=== PATIENT | male | born 1970 | race Caucasian/White ===

== ENCOUNTER 2020-08-29 09:42 | Emergency (ER) | payer BC, SELFPAY ==
--- NOTE | 2020-08-29 | ECG_ITS ---
Test Reason : BACK PAIN Blood Pressure : / mmHG Vent. Rate : 073 BPM Atrial Rate : 073 BPM P-R Int : 136 ms QRS Dur : 116 ms QT Int : 376 ms P-R-T Axes : 073 071 069 degrees QTc Int : 414 ms Normal sinus rhythm Normal ECG No previous ECGs available Referred By: Generic ED Physician Electronically Signed By:ODALYS FLETCHER MD
--- NOTE | ~2020-08-29 | CT_ITS ---
EXAMINATION: HEAD CT AND CERVICAL SPINE CT WITHOUT CONTRAST CLINICAL INFORMATION: Fall COMPARISON: Previous cervical spine x-ray February 2015 TECHNIQUE: Axial images through the head and cervical spine without contrast. Sagittal and coronal reconstructions on the technologist's workstation. Patient dose 752+4 4 3 mg/cm. This CT examination was performed using dose optimization techniques as appropriate, variously including the following: *Automated exposure control *Adjustment of mA and/or kV according to patient size (this includes techniques or standardized protocols for targeted exams where dose is matched to indication/reason for exam; i.e. extremities or head) *Use of iterative reconstruction technique FINDINGS: Head CT: There is no evidence of an extra-axial collection. There is no evidence of intra-axial or extra-axial hemorrhage. The ventricles and extra-axial CSF spaces are appropriate. Rowland-white matter differentiation is normal. No mass, mass effect or infarct is seen. No skull fracture is seen. Paranasal sinuses, mastoid air cells and middle ears are clear. Cervical spine: There is curvature of the lower cervical spine to the left and lower thoracic spine to the right. Bone alignment is otherwise normal. No fracture or dislocation is seen. There is an incomplete arch and C1. Disc spaces are normal. Prevertebral soft tissues are normal. Lung apices are clear. CT/CT cervical spine wo con IMPRESSION: Head CT: Unremarkable exam. Cervical spine: No fracture or dislocation seen. Mild curvature of the lower cervical spine to the left and upper thoracic spine to the right.
--- NOTE | ~2020-08-29 | CT_ITS ---
EXAMINATION: HEAD CT AND CERVICAL SPINE CT WITHOUT CONTRAST CLINICAL INFORMATION: Fall COMPARISON: Previous cervical spine x-ray February 2015 TECHNIQUE: Axial images through the head and cervical spine without contrast. Sagittal and coronal reconstructions on the technologist's workstation. Patient dose 752+4 4 3 mg/cm. This CT examination was performed using dose optimization techniques as appropriate, variously including the following: *Automated exposure control *Adjustment of mA and/or kV according to patient size (this includes techniques or standardized protocols for targeted exams where dose is matched to indication/reason for exam; i.e. extremities or head) *Use of iterative reconstruction technique FINDINGS: Head CT: There is no evidence of an extra-axial collection. There is no evidence of intra-axial or extra-axial hemorrhage. The ventricles and extra-axial CSF spaces are appropriate. Rowland-white matter differentiation is normal. No mass, mass effect or infarct is seen. No skull fracture is seen. Paranasal sinuses, mastoid air cells and middle ears are clear. Cervical spine: There is curvature of the lower cervical spine to the left and lower thoracic spine to the right. Bone alignment is otherwise normal. No fracture or dislocation is seen. There is an incomplete arch and C1. Disc spaces are normal. Prevertebral soft tissues are normal. Lung apices are clear. CT/CT head/brain wo con IMPRESSION: Head CT: Unremarkable exam. Cervical spine: No fracture or dislocation seen. Mild curvature of the lower cervical spine to the left and upper thoracic spine to the right.
[2020-08-29 09:47] VITALS: BP 185/103; PULSE 85; RESP 16; TEMP 36.9; O2SAT 97; BMI 27.2
--- NOTE | 2020-08-29 13:37 | ED_ITS ---
HPI - Syncope General Chief Complaint: Syncope Stated Complaint: dizziness, fall Time Seen by Provider: 08/29/20 13:34 History of Present Illness HPI narrative: This is a 49 years old male presented to the emergency the department after a near syncopal episode at work. He was bending down and then turn a fall backward. He denies any LOC he is denies any chest pain, shortness of breath ,no fever either ,fully ambulatory in the emergency department Related Data Allergies Allergy/AdvReac Type Severity Reaction Status Date / Time codeine [CODEINE] Allergy Mild HIVES Unverified 02/14/20 14:51 diphenhydramine Allergy Mild HIES Unverified 02/14/20 14:51 [From BENADRYL] Review of Systems Review of Systems: Yes all other systems are reviewed and are negative Cardiovascular: Cardiovascular: Reports no additional cardiovascular complaint s, Denies chest pain, Denies chest pain at rest, Denies chest pain with activity, Denies dyspnea and Denies dyspnea on exertion Respiratory: Respiratory: Denies dyspnea and Denies dyspnea on exertion [facility] Social History Social History Smoking Status: Current every day smoker Use of substances other than those prescribed or required for medical reasons: No Advance Directives: No Advance Directives Information Provided: No Physical Exam Vital Signs: Vital Signs: Last Vital Signs Temp 97.7 F 08/29/20 15:53 Pulse 64 08/29/20 15:53 Resp 14 08/29/20 15:53 BP 159/97 H 08/29/20 15:53 Pulse Ox 100 08/29/20 15:53 Body Mass Index 27.2 Const: General: cooperative Orientation/consciousness: oriented to person, oriented to place, oriented to time and patient oriented x3 HENMT: Head: Yes normal to inspection and Yes No palpable skull fracture present Eyes: General: appearance normal, both eyes and all related structures Neck: Neck: Yes normal visual inspection and Yes full ROM Chest: Chest palpation & inspection: normal inspection of the chest Resp: Auscultation: clear to auscultation bilaterally Cardio: Jugular venous distension: no JVD Rate: regular rate GI: Inspection: Yes normal to inspection Percussion: Yes normal to percussion Auscultation: normal bowel sounds Skin: General skin exam: no rashes or lesions noted Neuro: General: oriented to person, oriented to place, oriented to time and patient oriented x3 Extrem: General: Yes normal to inspection and Yes capillary refill normal Course Reevaluation(s) Time: 15:57 Reevaluation #2: Patient was observed in the emergency department several hours he remained asymptomatic his workup was negative a head CT was negative EKG was within normal limites troponin was negative a I think it is reasonable to discharge the patient home with follow-up with the primary care physician. Shared decision making with the patient these comfortable with the plan he will return is the worse MDM - Syncope Lab Data Result diagrams: 08/29/20 14:55 08/29/20 14:55 Labs: Lab Results 08/29/20 08/29/20 08/29/20 Range/Units 14:55 14:55 14:55 WBC 9.2 (4.8-10.8) X10*3/uL RBC 4.87 (4.60-5.80) X10*6/uL Hgb 15.3 (14.0-18.0) g/dl Hct 45.6 (42-52) % MCV 93.6 (80-98) fL MCH 31.4 (27.0-33.0) pg MCHC 33.6 (31.0-36.0) g/dl RDW 11.9 (11.0-16.0) % Plt Count 249 (160-400) X10*3/uL MPV 9.7 (9.4-12.4) fL Immature Gran % (Auto) 0.3 (0.0-0.4) % Neut % (Auto) 69.8 (45-73) % Lymph % (Auto) 20.0 (20-40) % Loving % (Auto) 8.1 (2-11) % Eos % (Auto) 1.4 (0-4) % Baso % (Auto) 0.4 (0-2) % Lymph # (Auto) 1.8 (1.2-4.9) X10*3/uL Loving # (Auto) 0.7 (0.1-1.2) X10*3/uL Eos # (Auto) 0.1 (0.0-0.4) X10*3/uL Baso # (Auto) 0.0 (0.0-0.2) X10*3/uL Abs Immat Gran (auto) 0.03 (0.00-0.03) X10*3/uL Absolute Neuts (auto) 6.4 (2.0-8.3) X10*3/uL Absolute Nucleated RBC 0.000 (0.0-0.012) X10*3/uL Nucleated RBC % (auto) 0.0 (0.0-0.2) /100WBC PT 12.9 (10.8-13.0) SEC INR 1.1 (0.9-1.1) Sodium 142 (135-145) mmol/L Potassium 4.6 (3.3-5.1) mmol/L Chloride 103 (96-108) mmol/L Carbon Dioxide 32 H (22-29) mmol/L Anion Gap 12 (12-20) BUN 12 (9-16) mg/dL Creatinine 0.90 (0.5-1.4) mg/dL Estim Creat Clear Calc 103.6 Estimated GFR > 60 Random Glucose 90 (60-115) mg/dL Calcium 9.5 (8.4-10.2) mg/dL Total Bilirubin 0.8 (0.0-1.0) mg/dL AST 15 (5-37) U/L ALT 18 (0-40) U/L Alkaline Phosphatase 71 (39-117) U/L Troponin I High Sens (<3.5-35.0) ng/L Total Protein 8.0 (6.5-8.0) g/dL Albumin 4.7 (3.5-5.0) g/dL 08/29/20 Range/Units 14:55 WBC (4.8-10.8) X10*3/uL RBC (4.60-5.80) X10*6/uL Hgb (14.0-18.0) g/dl Hct (42-52) % MCV (80-98) fL MCH (27.0-33.0) pg MCHC (31.0-36.0) g/dl RDW (11.0-16.0) % Plt Count (160-400) X10*3/uL MPV (9.4-12.4) fL Immature Gran % (Auto) (0.0-0.4) % Neut % (Auto) (45-73) % Lymph % (Auto) (20-40) % Loving % (Auto) (2-11) % Eos % (Auto) (0-4) % Baso % (Auto) (0-2) % Lymph # (Auto) (1.2-4.9) X10*3/uL Loving # (Auto) (0.1-1.2) X10*3/uL Eos # (Auto) (0.0-0.4) X10*3/uL Baso # (Auto) (0.0-0.2) X10*3/uL Abs Immat Gran (auto) (0.00-0.03) X10*3/uL Absolute Neuts (auto) (2.0-8.3) X10*3/uL Absolute Nucleated RBC (0.0-0.012) X10*3/uL Nucleated RBC % (auto) (0.0-0.2) /100WBC PT (10.8-13.0) SEC INR (0.9-1.1) Sodium (135-145) mmol/L Potassium (3.3-5.1) mmol/L Chloride (96-108) mmol/L Carbon Dioxide (22-29) mmol/L Anion Gap (12-20) BUN (9-16) mg/dL Creatinine (0.5-1.4) mg/dL Estim Creat Clear Calc Estimated GFR Random Glucose (60-115) mg/dL Calcium (8.4-10.2) mg/dL Total Bilirubin (0.0-1.0) mg/dL AST (5-37) U/L ALT (0-40) U/L Alkaline Phosphatase (39-117) U/L Troponin I High Sens < 3.5 (<3.5-35.0) ng/L Total Protein (6.5-8.0) g/dL Albumin (3.5-5.0) g/dL ECG Data Attestation: I personally reviewed and interpreted this ECG as follows: Pacemaker model: Normal sinus rhythm rate 73 no ischemic changes normal intervals
[2020-08-29 14:48] VITALS: BP 157/92; PULSE 62; RESP 16; TEMP 36.9; O2SAT 98
[2020-08-29 15:00] LABS: MANUAL DIFF FLAG NO
[2020-08-29 15:04] LABS: Basophils Percent Auto 0.4 % (0-2); Eosinophils Absolute Auto 0.1 X10*3/uL (0.0-0.4); Eosinophils Percent Auto 1.4 % (0-4); Hematocrit 45.6 % (42-52); Hemoglobin 15.3 g/dl (14.0-18.0); Imm Gran Abs Auto 0.03 X10*3/uL (0.00-0.03); Imm Gran Pct Auto 0.3 % (0.0-0.4); Lymphocytes Absolute Auto 1.8 X10*3/uL (1.2-4.9); Mean Corpuscular HGB Conc 33.6 g/dl (31.0-36.0); Mean Corpuscular Hemoglobin 31.4 pg (27.0-33.0); Mean Corpuscular Volume 93.6 fL (80-98); Mean Platelet Volume 9.7 fL (9.4-12.4); Monocytes Absolute Auto 0.7 X10*3/uL (0.1-1.2); Monocytes Percent Auto 8.1 % (2-11); Neutrophils Absolute Auto 6.4 X10*3/uL (2.0-8.3); Neutrophils Percent Auto 69.8 % (45-73); Platelet Count 249 X10*3/uL (160-400); Red Blood Count 4.87 X10*6/uL (4.60-5.80); Red Cell Distribution Width 11.9 % (11.0-16.0); White Blood Count 9.2 X10*3/uL (4.8-10.8)
[2020-08-29 15:11] LABS: INTERNATIONAL NORM RATIO 1.1 (0.9-1.1); Prothrombin Time 12.9 SEC (10.8-13.0)
[2020-08-29 15:30] LABS: Alanine Aminotransferase 18 U/L (0-40); Albumin Level 4.7 g/dL (3.5-5.0); Alkaline Phosphatase 71 U/L (39-117); Anion Gap 12 (12-20); Aspartate Amino Transferase 15 U/L (5-37); Bilirubin Total 0.8 mg/dL (0.0-1.0); Blood Urea Nitrogen 12 mg/dL (9-16); Calcium 9.5 mg/dL (8.4-10.2); Carbon Dioxide 32 mmol/L (22-29); Chloride 103 mmol/L (96-108); Creatinine Clr Calc Pharmacy 103.6; Estimated Glomerular Filt Rate > 60; Glucose Random 90 mg/dL (60-115); Potassium 4.6 mmol/L (3.3-5.1); Sodium 142 mmol/L (135-145)
[2020-08-29 15:36] LABS: Troponin-I High Sensitivity < 3.5 ng/L (<3.5-35.0)
[2020-08-29 15:53] VITALS: BP 159/97; PULSE 64; RESP 14; TEMP 36.5; O2SAT 100
== END 2020-08-29 16:28 | disposition home or self-care (01) ==
PROVIDERS: Emergency Provider Emergency Medicine
DX: R55 Syncope and collapse (principal); M54.2 Cervicalgia; G44.309 Post-traumatic headache, unspecified, not intractable; F17.200 Nicotine dependence, unspecified, uncomplicated; Z71.6 Tobacco abuse counseling
CPT/HCPCS: 36415; 70450; 72125; 80053; 84484; 85025; 85610; 93005; 99284

== ENCOUNTER 2020-12-11 07:25 | Emergency (ER) | payer BC, SELFPAY ==
[2020-12-11 07:31] VITALS: BP 201/126; PULSE 73; RESP 16; TEMP 36.9; O2SAT 98; BMI 27.4
--- NOTE | 2020-12-11 07:49 | ED_ITS ---
HPI - Chest Pain General Chief Complaint: Chest Pain Stated Complaint: chest pain Time Seen by Provider: 12/11/20 07:31 Source: patient Mode of arrival: ambulatory Limitations: no limitations History of Present Illness HPI narrative: Patient comes emergency room complaining of chest pressure that started this morning around 05:30. Patient states he had some pulled muscle sensation in his chest after playing golf yesterday. Patient went to sleep, but he noticed that the pain/pressure restarted. Patient states he has some discomfort in his left chest. Denies nausea vomiting or diaphoresis, no dizziness, denies cardiac history. Patient states that at this time he has very mild discomfort but he is extremely anxious. Patient states that he ran out of his blood pressure medication approximately 1 week ago. MD complaint: chest discomfort Related Data Allergies Allergy/AdvReac Type Severity Reaction Status Date / Time codeine [CODEINE] Allergy Mild HIVES Unverified 02/14/20 14:51 diphenhydramine Allergy Mild HIES Unverified 02/14/20 14:51 [From BENADRYL] Review of Systems Review of Systems: Constitutional : No Weight loss, No Fever, No Chills, No Night Sweats, No Fatigue, No Malaise ENT/Mouth : No Hearing loss, No Ear Pain, No Nasal Congestion, No Sinus Pain, No Hoarseness, No sore throat, No Rhinorrhea, No Swallowing Difficulty Eyes: No Eye Pain, No Swelling, No Redness, No Foreign Body, No Discharge, No Vision Changes Cardiovascular : Complaining of chest pressure/burning sensation, No SOB, No Dyspnea on Exertion, No Orthopnea, No Edema, No Palpitations Respiratory : No Cough, No Sputum, No Wheezing, No Smoke Exposure, No Dyspnea Gastrointestinal : No Nausea, No Vomiting, No Diarrhea, No Constipation, No abdominal Pain, No Hematochezia, No Melena Genitourinary : no irregular bleeding, No Dysuria, No Urinary Frequency, No Hematuria, No Urinary Incontinence, No Urgency, No Flank Pain, No Urinary Flow Changes, No Hesitancy Musculoskeletal : No joint pain, No Myalgias, No Joint Swelling Skin : No Skin Lesions, No rash Neuro : No Weakness, No Numbness, No Paresthesias, No Loss of Consciousness, No Dizziness, No Headache Psych : complaining of feeling very anxious, No Depression, No SI/HI/AH/VH, No Social Issues, Heme/Lymph: No Bruising, No Bleeding,No Lymphadenopathy Endocrine : No Polyuria, No Polydipsia, No Temperature Intolerance [facility] Past Medical History Medical History Anxiety HTN (hypertension) Social History Social History Advance Directives: Yes Advance Directives Information Provided: Yes Advance Directives on File: No Physical Exam Vital Signs: Vital Signs: Last Vital Signs Temp 98.0 F 12/11/20 10:56 Pulse 55 12/11/20 10:56 Resp 16 12/11/20 10:56 BP 135/89 12/11/20 10:56 Pulse Ox 99 12/11/20 10:56 Body Mass Index 27.4 Appearance: Alert. Oriented X3. No acute distress. Anxious, traveling Eyes: Pupils equal, round and reactive to light. ENT: Pharynx normal. Neck: Normal inspection. Neck supple. No lymph nodes noted. No crepitus CVS: Normal heart rate and rhythm. Pulses normal. Normal S1 and S2, no reproducible chest pain Respiratory: No respiratory distress. Breath sounds normal. No Wheezing. No rales Abdomen: Soft and nontender. No rigidity. No distention. good BS x4 Skin: Skin warm and dry. Normal skin color. Normal skin turgor. Extremities: No lower extremity edema. No lower extremity edema. No Lacerations. No Rash Neuro: Oriented X 3. No motor deficit. No sensory deficit. Moving all extermities. No slurred speech. Course Course Course Narrative: Patient's EKG within normal limits, troponin x2 negative. At this time of discharge, patient is nearly asymptomatic, states he is no longer anxious. Blood pressure 135 systolic. MDM - Chest Pain Lab Data Result diagrams: 12/11/20 07:53 12/11/20 07:53 Labs: Lab Results 12/11/20 12/11/20 12/11/20 Range/Units 07:53 07:53 07:53 WBC 8.6 (4.8-10.8) X10*3/uL RBC 4.62 (4.60-5.80) X10*6/uL Hgb 14.3 (14.0-18.0) g/dl Hct 43.0 (42-52) % MCV 93.1 (80-98) fL MCH 31.0 (27.0-33.0) pg MCHC 33.3 (31.0-36.0) g/dl RDW 11.5 (11.0-16.0) % Plt Count 230 (160-400) X10*3/uL MPV 9.7 (9.4-12.4) fL Immature Gran % (Auto) 0.2 (0.0-0.4) % Neut % (Auto) 72.8 (45-73) % Lymph % (Auto) 17.3 L (20-40) % Granite % (Auto) 6.7 (2-11) % Eos % (Auto) 2.4 (0-4) % Baso % (Auto) 0.6 (0-2) % Lymph # (Auto) 1.5 (1.2-4.9) X10*3/uL Granite # (Auto) 0.6 (0.1-1.2) X10*3/uL Eos # (Auto) 0.2 (0.0-0.4) X10*3/uL Baso # (Auto) 0.1 (0.0-0.2) X10*3/uL Abs Immat Gran (auto) 0.02 (0.00-0.03) X10*3/uL Absolute Neuts (auto) 6.3 (2.0-8.3) X10*3/uL Absolute Nucleated RBC 0.000 (0.0-0.012) X10*3/uL Nucleated RBC % (auto) 0.0 (0.0-0.2) /100WBC Sodium 141 (135-145) mmol/L Potassium 4.5 (3.3-5.1) mmol/L Chloride 104 (96-108) mmol/L Carbon Dioxide 30 H (22-29) mmol/L Anion Gap 12 (12-20) BUN 13 (9-16) mg/dL Creatinine 1.03 (0.5-1.4) mg/dL Estim Creat Clear Calc 86.7 Estimated GFR > 60 Random Glucose 131 H D (60-115) mg/dL Calcium 9.5 (8.4-10.2) mg/dL Total Bilirubin 0.3 (0.0-1.0) mg/dL Direct Bilirubin < 0.2 (0.0-0.5) mg/dL AST 17 (5-37) U/L ALT 22 (0-40) U/L Alkaline Phosphatase 78 (39-117) U/L Troponin I High Sens (<3.5-35.0) ng/L Total Protein 7.7 (6.5-8.0) g/dL Albumin 4.5 (3.5-5.0) g/dL 12/11/20 12/11/20 Range/Units 07:53 11:01 WBC (4.8-10.8) X10*3/uL RBC (4.60-5.80) X10*6/uL Hgb (14.0-18.0) g/dl Hct (42-52) % MCV (80-98) fL MCH (27.0-33.0) pg MCHC (31.0-36.0) g/dl RDW (11.0-16.0) % Plt Count (160-400) X10*3/uL MPV (9.4-12.4) fL Immature Gran % (Auto) (0.0-0.4) % Neut % (Auto) (45-73) % Lymph % (Auto) (20-40) % Granite % (Auto) (2-11) % Eos % (Auto) (0-4) % Baso % (Auto) (0-2) % Lymph # (Auto) (1.2-4.9) X10*3/uL Granite # (Auto) (0.1-1.2) X10*3/uL Eos # (Auto) (0.0-0.4) X10*3/uL Baso # (Auto) (0.0-0.2) X10*3/uL Abs Immat Gran (auto) (0.00-0.03) X10*3/uL Absolute Neuts (auto) (2.0-8.3) X10*3/uL Absolute Nucleated RBC (0.0-0.012) X10*3/uL Nucleated RBC % (auto) (0.0-0.2) /100WBC Sodium (135-145) mmol/L Potassium (3.3-5.1) mmol/L Chloride (96-108) mmol/L Carbon Dioxide (22-29) mmol/L Anion Gap (12-20) BUN (9-16) mg/dL Creatinine (0.5-1.4) mg/dL Estim Creat Clear Calc Estimated GFR Random Glucose (60-115) mg/dL Calcium (8.4-10.2) mg/dL Total Bilirubin (0.0-1.0) mg/dL Direct Bilirubin (0.0-0.5) mg/dL AST (5-37) U/L ALT (0-40) U/L Alkaline Phosphatase (39-117) U/L Troponin I High Sens < 3.5 < 3.5 (<3.5-35.0) ng/L Total Protein (6.5-8.0) g/dL Albumin (3.5-5.0) g/dL ECG Data ECG #1: Attestation: I personally reviewed and interpreted this ECG as follows: (Normal sinus rhythm, heart rate 68, no ST segment depression or elevation, no T-wave inversion, interference due to shaking) Scores Heart Score History: -0- slightly suspicious ECG: -0- normal Age: -1- >45 - <65 Risk factory: -1- 1 or 2 risk factors Troponin: -0- < or = normal limit Score: 2 Risk: 1.7% Discharge Plan Discharge Clinical Impression: Atypical chest pain Patient Disposition: Home, Self-Care Instructions: Chest Pain (ED) Additional Instructions: Please follow-up with your primary care physician tomorrow. If you have any worsening or new symptoms, please return to the emergency room or call 911 Stand Alone Forms: Work/School Release
[2020-12-11 07:59] LABS: MANUAL DIFF FLAG NO
[2020-12-11 08:00] VITALS: BP 152/89; PULSE 58; RESP 20; O2SAT 98
[2020-12-11 08:00] LABS: Basophils Absolute Auto 0.1 X10*3/uL (0.0-0.2); Basophils Percent Auto 0.6 % (0-2); Eosinophils Absolute Auto 0.2 X10*3/uL (0.0-0.4); Eosinophils Percent Auto 2.4 % (0-4); Hemoglobin 14.3 g/dl (14.0-18.0); Imm Gran Abs Auto 0.02 X10*3/uL (0.00-0.03); Imm Gran Pct Auto 0.2 % (0.0-0.4); Lymphocytes Absolute Auto 1.5 X10*3/uL (1.2-4.9); Lymphocytes Percent Auto 17.3 % (20-40); Mean Corpuscular HGB Conc 33.3 g/dl (31.0-36.0); Mean Corpuscular Volume 93.1 fL (80-98); Mean Platelet Volume 9.7 fL (9.4-12.4); Monocytes Absolute Auto 0.6 X10*3/uL (0.1-1.2); Monocytes Percent Auto 6.7 % (2-11); Neutrophils Absolute Auto 6.3 X10*3/uL (2.0-8.3); Neutrophils Percent Auto 72.8 % (45-73); Platelet Count 230 X10*3/uL (160-400); Red Blood Count 4.62 X10*6/uL (4.60-5.80); Red Cell Distribution Width 11.5 % (11.0-16.0); White Blood Count 8.6 X10*3/uL (4.8-10.8)
[2020-12-11] MEDS: Aspirin Enteric Coated 325 MG TABLET.DR PO (08:11)
[2020-12-11] MEDS: LORazepam 0.5 MG TABLET PO (08:11)
[2020-12-11 08:21] LABS: Anion Gap 12 (12-20); Blood Urea Nitrogen 13 mg/dL (9-16); Calcium 9.5 mg/dL (8.4-10.2); Carbon Dioxide 30 mmol/L (22-29); Chloride 104 mmol/L (96-108); Creatinine Clr Calc Pharmacy 86.7; Estimated Glomerular Filt Rate > 60; Glucose Random 131 mg/dL (60-115); Potassium 4.5 mmol/L (3.3-5.1); Sodium 141 mmol/L (135-145)
[2020-12-11 08:22] LABS: Alanine Aminotransferase 22 U/L (0-40); Albumin Level 4.5 g/dL (3.5-5.0); Alkaline Phosphatase 78 U/L (39-117); Aspartate Amino Transferase 17 U/L (5-37); Bilirubin Direct < 0.2 mg/dL (0.0-0.5); Bilirubin Total 0.3 mg/dL (0.0-1.0); Total Protein 7.7 g/dL (6.5-8.0)
[2020-12-11 08:26] LABS: Troponin-I High Sensitivity < 3.5 ng/L (<3.5-35.0)
[2020-12-11 10:56] VITALS: BP 135/89; PULSE 55; RESP 16; TEMP 36.7; O2SAT 99
[2020-12-11 11:51] LABS: Troponin-I High Sensitivity < 3.5 ng/L (<3.5-35.0)
--- NOTE | 2020-12-11 16:16 | ECG_ITS ---
Test Reason : CHEST PRESSURE Blood Pressure : / mmHG Vent. Rate : 068 BPM Atrial Rate : 068 BPM P-R Int : 158 ms QRS Dur : 106 ms QT Int : 382 ms P-R-T Axes : 021 067 060 degrees QTc Int : 406 ms Normal sinus rhythm Normal ECG When compared with ECG of 29-AUG-2020 10:14, No significant change was found Referred By: Kim Chicas Electronically Signed By:Oscar Jimenez
== END 2020-12-11 12:25 | disposition home or self-care (01) ==
PROVIDERS: Emergency Provider Emergency Medicine; PCP Internal Medicine
DX: R07.89 Other chest pain (principal); I10 Essential (primary) hypertension
CPT/HCPCS: 36415; 80048; 80076; 84484; 85025; 93005; 99283; 99285

== ENCOUNTER 2022-02-08 06:13 | Inpatient (IN) | payer BC, SELFPAY ==
[2022-02-08] VITALS (8 sets, daily range): BP systolic 119–144; BP diastolic 80–104; PULSE 70–128; RESP 16–18; TEMP 36.6–37.6; O2SAT 96–99; BMI 28.4
--- NOTE | ~2022-02-08 | US_ITS ---
EXAMINATION: US VENOUS ULTRASOUND WITH DOPPLER LOWER EXTREMITY, RIGHT CLINICAL INFORMATION: Calf pain, tightness COMPARISON: None TECHNIQUE: Ultrasound of the deep veins is performed from the hip to the calf with compression sonography and color and pulse Doppler assessment. Spectral analysis with color-flow imaging is performed. FINDINGS: There is normal venous compression and respiratory variation and augmented flow. The visualized common femoral vein, superficial femoral vein, profunda femoral vein, popliteal vein, and the trifurcation region shows no evidence of deep venous thrombosis. There is no significant popliteal fossa cyst. Several enlarged right inguinal lymph nodes are present the largest measuring 4.4 x 1.3 x 2.7 cm. If the patient's symptoms persist, followup ultrasound in 5 days 7 days might be of value to exclude proximal propagation from a non-visualized calf vein. US/US venous duplex LE RT IMPRESSION: No DVT demonstrated in the right lower extremity. Nonspecific right inguinal lymphadenopathy.
[2022-02-08 07:27] LABS: Hematocrit 46.4 % (42.0-52.0); Hemoglobin 15.7 g/dl (14.0-18.0); Mean Corpuscular HGB Conc 33.8 g/dl (31.0-36.0); Mean Corpuscular Hemoglobin 30.7 pg (27.0-33.0); Mean Corpuscular Volume 90.6 fL (80.0-98.0); Mean Platelet Volume 9.7 fL (9.4-12.4); Platelet Count 199 X10*3/uL (160-400); Red Blood Count 5.12 X10*6/uL (4.60-5.80); White Blood Count 15.5 X10*3/uL (4.8-10.8)
[2022-02-08 07:34] LABS: Alanine Aminotransferase 18 U/L (0-40); Albumin Level 4.4 g/dL (3.5-5.0); Alkaline Phosphatase 67 U/L (39-117); Anion Gap 16 (12-20); Aspartate Amino Transferase 17 U/L (5-37); Bilirubin Total 0.7 mg/dL (0.0-1.0); Blood Urea Nitrogen 16 mg/dL (9-16); Calcium 9.6 mg/dL (8.4-10.2); Carbon Dioxide 26 mmol/L (22-29); Chloride 98 mmol/L (96-108); Creatinine Clr Calc Pharmacy 70.6; Estimated Glomerular Filt Rate 53; Glucose Random 168 mg/dL (60-115); Sodium 136 mmol/L (135-145)
--- NOTE | 2022-02-08 08:07 | ED_ITS ---
HPI - General Adult General Chief complaint: General Medical Stated complaint: pain, dark line going from groin down leg Time Seen by Provider: 02/08/22 08:07 Source: patient and family () Mode of arrival: ambulatory Limitations: no limitations History of Present Illness HPI narrative: Patient is a 51 year old male presenting to the emergency department today with right lower leg warmth, pain, fever, chills, nausea, and unable to eat or drink. Patient states that over the last few days he has felt generally unwell and the day before yesterday, he noticed that his right lower leg was red and warmth. Patient states that last night, he noticed that the redness had spread to his right upper leg/inner thigh. Patient states that he has felt feverish with chills and nauseated at home. Patient denies any dizziness, lightheadedness, abdominal pain, vomiting, blurry vision, double vision, loss of vision, chest pain, difficulty breathing, shortness of breath, back pain, night sweats, pain with urination, increased urinary frequency, increased urinary urgency, blood in his urine or stool, syncope or a near syncopal episode, recent trauma or falls, bowel incontinence, bladder incontinence, bowel retention, bladder retention, or any other complaints at this time. Onset (ago): day(s) Location: right and lower extremity Radiation: proximal Severity: mild Severity scale (1-10): 3 Quality: aching Pain Consistency: constant Relieving factors: none Exacerbating factors: none Associated symptoms: fever/chills, loss of appetite and nausea/vomiting Treatments prior to arrival: none Related Data Home Medications Medication Instructions Recorded Confirmed acetaminophen 650 mg 650 mg PO Q8H PRN Migraine Headache 02/08/22 02/08/22 tablet,extended release (Tylenol 8 Hour) Allergies Allergy/AdvReac Type Severity Reaction Status Date / Time codeine [CODEINE] Allergy Mild HIVES Unverified 02/14/20 14:51 diphenhydramine Allergy Mild HIES Unverified 02/14/20 14:51 [From BENADRYL] Review of Systems Constitutional: Constitutional: Reports no additional constitutional complaints, Reports chills, Reports fever(s), Denies night sweats and Reports poor appetite Eyes: Eyes: Reports no additional eye complaints, Denies blurry vision, Denies change in vision, Denies diplopia, Denies eye discharge, Denies loss of vision and Denies eye pain ENT: Denies dizziness Cardiovascular: Cardiovascular: Reports no additional cardiovascular complaints, Denies chest pain, Denies lightheadedness, Denies Loss of Consciousness and Denies dyspnea Respiratory: Respiratory: Reports no additional respiratory complaints and Denies dyspnea Gastrointestinal: Gastrointestinal: Reports no additional gastrointestinal complaints, Denies abdominal pain, Denies melena, Denies hematochezia, Denies change in bowel habits, Denies change in stool character, Reports nausea and Denies vomiting Genitourinary: Genitourinary: Reports no additional male genitourinary complaints, Denies hematuria, Denies oliguria, Denies difficulty urinating, Denies dysuria, Denies urinary frequency, Denies urinary hesitancy, Denies urinary incontinence and Denies urinary urgency Musculoskeletal: Musculoskeletal: Reports no additional musculoskeletal complaints, Denies numbness and Denies tingling Comments: right lower leg pain, redness, swelling Neurologic: Denies dizziness, Denies loss of vision, Denies numbness and Denies tingling Psychiatric: Psychiatric: Reports no additional psychiatric complaints Endocrine: Endocrine: Reports no additional endocrine complaints Hematologic/Lymphatic: Hematologic/Lymphatic: Reports no additional hematologic/lymphatic complaints Allergic/Immunologic: Allergic/Immunologic: Reports no additional allergic/immunologic complaints [facility] Past Medical History Attestation statement: The following information was validated with the patient. Source: old records reviewed and obtained from family (patient's ) Surgical History History of adenoidectomy Social History Social History Patient Tobacco Use Status: Current everyday Tobacco user Smoked in Last 30 Days: Yes Use of substances other than those prescribed or required for medical reasons: No Advance Directives: No Advance Directives Information Provided: Yes Physical Exam ED Vital Signs: Vital Signs - 24 hr 02/08/22 06:54 02/08/22 09:28 02/08/22 11:24 Temperature 99.7 F Pulse Rate 128 H 90 70 Respiratory Rate 17 16 16 Blood Pressure 136/86 119/89 139/86 Pulse Oximetry 96 97 98 Oxygen Delivery Method Room Air Room Air Room Air BMI result Body Mass Index 28.4 Const General: cooperative, no acute distress, alert and awake Nutritional Appearance: well nourished Orientation/consciousness: patient oriented x3 Limitations: no limitations HENMT Head: Yes normal to inspection and Yes atraumatic Ears: hearing grossly normal bilaterally and external ears normal General nose exam: Normal external nose present, no nasal discharge noted and no epistaxis Face and sinus: Yes normal facial exam, No abrasion and No laceration Mouth: Normal oral and palatal mucosa present, no drooling and no muffled voice Eyes General: appearance normal, both eyes and all related structures Periorbital: periorbital findings normal Eyelids: Yes eyelids normal Conjunctivae: conjunctivae normal Pupils: Equal, round and reactive pupils present EOM: EOMs intact bilaterally Neck Neck: Yes normal visual inspection, Yes full ROM and Yes no lymphadenopathy Chest Chest palpation & inspection: normal inspection of the chest Resp Effort & Inspection: normal respiratory effort and able to speak in complete sentences Auscultation: clear to auscultation bilaterally Cardio Rate: regular rate Rhythm: regular rhythm GI Inspection: Yes normal to inspection Neuro General: patient oriented x3 and moves all extremities Cranial nerves: Yes Equal, round and reactive pupils present Cognition (Neuro): normal cognition Motor exam (neuro): 5/5 motor strength present throughout Sensory Exam: Normal double simultaneous stimulation for sensation Coordination: [id number] test normal Extrem Other: warmth, erythema, and mild swelling to the right lower leg, redness present to the right inner thigh as well General: Yes full ROM and Yes capillary refill normal Psych Appearance: grossly normal Mental Status: mental status grossly normal Affect: normal affect Attitude: cooperative Thought process: Normal thought process present Thought content: Normal thought content present Insight: Good insight present (Psych) Medical Decision Making [facility] Narrative Medical decision making narrative: Patient is a 51 year old male presenting to the emergency department today with right leg cellulitis and possible sepsis. Patient's physical exam showed right lower leg erythema, warmth, and minimal swelling that streaked up into the right thigh. Patient's blood work showed an elevated WBC count of 15.5 and and a slightly elevated CR of 1.41 with a normal lactic acid of 1.1. Patient's right lower leg US showed no acute process. I determined the patient had an acute infection at 0814 on 02/08/2022 and initiated IV Rocephin, blood cultures, and 30mg/kg NS fluid bolus. I do not believe the patient to be in septic shock at this time. I explained my physical exam findings as well as all test results to the patient and the patient's . I answered all questions asked by the pat iebrandon and the patient's . I spoke to Dr. Mcmanus who agreed to hospital admission. Patient and the patient's verbalized agreement and understanding with this treatment plan and admission. Medical Records Medical records reviewed: Yes I reviewed the patient's medical records. Lab Data Lab results reviewed: Yes I reviewed the patient's lab results. Result diagrams: 02/08/22 07:08 02/08/22 07:08 Labs: Lab Results 02/08/22 02/08/22 02/08/22 Range/Units 07:08 07:08 08:55 WBC 15.5 H (4.8-10.8) X10*3/uL RBC 5.12 (4.60-5.80) X10*6/uL Hgb 15.7 (14.0-18.0) g/dl Hct 46.4 (42.0-52.0) % MCV 90.6 (80.0-98.0) fL MCH 30.7 (27.0-33.0) pg MCHC 33.8 (31.0-36.0) g/dl RDW 12.0 (11.0-16.0) % Plt Count 199 (160-400) X10*3/uL MPV 9.7 (9.4-12.4) fL Absolute Nucleated RBC 0.000 (0.0-0.012) X10*3/uL Nucleated RBC % (auto) 0.0 (0.0-0.2) /100WBC Sodium 136 (135-145) mmol/L Potassium 4.0 (3.3-5.1) mmol/L Chloride 98 (96-108) mmol/L Carbon Dioxide 26 (22-29) mmol/L Anion Gap 16 (12-20) BUN 16 (9-16) mg/dL Creatinine 1.41 H (0.5-1.4) mg/dL Estim Creat Clear Calc 70.6 Estimated GFR 53 Random Glucose 168 H (60-115) mg/dL Lactic Acid 1.1 (0.5-2.0) mmol/L Calcium 9.6 (8.4-10.2) mg/dL Total Bilirubin 0.7 (0.0-1.0) mg/dL AST 17 (5-37) U/L ALT 18 (0-40) U/L Alkaline Phosphatase 67 (39-117) U/L Total Protein 8.0 (6.5-8.0) g/dL Albumin 4.4 (3.5-5.0) g/dL COVID-19 ([facility]) (Negative) COVID-19 Clin Com 02/08/22 Range/Units 08:55 WBC (4.8-10.8) X10*3/uL RBC (4.60-5.80) X10*6/uL Hgb (14.0-18.0) g/dl Hct (42.0-52.0) % MCV (80.0-98.0) fL MCH (27.0-33.0) pg MCHC (31.0-36.0) g/dl RDW (11.0-16.0) % Plt Count (160-400) X10*3/uL MPV (9.4-12.4) fL Absolute Nucleated RBC (0.0-0.012) X10*3/uL Nucleated RBC % (auto) (0.0-0.2) /100WBC Sodium (135-145) mmol/L Potassium (3.3-5.1) mmol/L Chloride (96-108) mmol/L Carbon Dioxide (22-29) mmol/L Anion Gap (12-20) BUN (9-16) mg/dL Creatinine (0.5-1.4) mg/dL Estim Creat Clear Calc Estimated GFR Random Glucose (60-115) mg/dL Lactic Acid (0.5-2.0) mmol/L Calcium (8.4-10.2) mg/dL Total Bilirubin (0.0-1.0) mg/dL AST (5-37) U/L ALT (0-40) U/L Alkaline Phosphatase (39-117) U/L Total Protein (6.5-8.0) g/dL Albumin (3.5-5.0) g/dL COVID-19 ([facility]) Negative (Negative) COVID-19 Clin Com See Note Imaging Data Venous US: Attestation: I personally reviewed and interpreted this imaging study as follows: My impression: No acute process. Radiologist's impression: EXAMINATION:? US VENOUS ULTRASOUND WITH DOPPLER LOWER EXTREMITY, RIGHT CLINICAL INFORMATION:? Calf pain, tightness COMPARISON:? None TECHNIQUE: Ultrasound of the deep veins is performed from the hip to the calf with compression sonography and color and pulse Doppler assessment. Spectral analysis with color-flow imaging is performed. FINDINGS: There is normal venous compression and respiratory variation and augmented flow. The visualized common femoral vein, superficial femoral vein, profunda femoral vein, popliteal vein, and the trifurcation region shows no evidence of deep venous thrombosis. ? There is no significant popliteal fossa cyst. Several enlarged right inguinal lymph nodes are present the largest measuring 4.4 x 1.3 x 2.7 cm. If the patient's symptoms persist, followup ultrasound in 5 days 7 days might be of value to exclude proximal propagation from a non-visualized calf vein. US/US venous duplex LE RT IMPRESSION: No DVT demonstrated in the right lower extremity. ? Nonspecific right inguinal lymphadenopathy. Dictated By: Bud Garnett MD Signed By: Electronically signed by Bud Garnett MD 02/08/22 0944 Critical Care Time Critical Care Time Critical Care Time: Yes Total Critical Care Time: 30 Attestation: I spent 30 minutes of Critical Care Time with this patient. This does not include time spent on separately reported billable procedures. Discharge Plan Discharge Clinical Impression: Cellulitis Patient Disposition: Admitted As Inpatient
[2022-02-08 09:11] LABS: Lactic Acid 1.1 mmol/L (0.5-2.0)
[2022-02-08 09:23] LABS: COVID-19 Test Negative (Negative)
[2022-02-08] MEDS: Acetaminophen 325 MG TABLET 650 MG PO ×2 (09:23→15:41)
[2022-02-08] MEDS: cefTRIAXone sodium 1 GM in 0.9 % Sodium Chloride 50 ML IV (09:24)
[2022-02-08] MEDS: ondansetron HCL 4 MG/2 ML VIAL IVPUSH (09:24)
[2022-02-08] MEDS: SODIUM CHLORIDE 2694.33 ML IV (09:25)
--- NOTE | 2022-02-08 11:33 | PM.IMHP ---
History of Present Illness Date of Service: 02/08/22 Chief Complaint: Right lower extremity redness this is a 51-year-old male with remote history of hypertension, currently not on any antihypertensives presents to the emergency department with complaints of right lower extremity pain and swelling. Patient states it started About 2 days prior to presentation, progressive in onset and without any relieving factors. He states that he may have hit his right lower extremity at work and that may have started it. It has progressed to involve his dixon and he has noticed redness, warmth and pain. Also has associated fevers at home with chills, documented temperature 101 degrees. Did not try antibiotic for it. Patient states he has associated loss of appetite and has not eaten much over the last 2 days. Denies nausea, vomiting, chest pain, palpitations, changes in urinary or bowel habits. No acute joint pain, known insect bite or recent travel. No purulent drainage. No sick contacts. Review of Systems Review of Systems: All 13 ROS are reviewed and negative except as noticed in HPI PMFSH Functional capacity: independent ambulation Surgical History (Updated 02/08/22 @ 11:40 by Miguel Mcmanus MD) History of adenoidectomy Social History Advance Directives: No Advance Directives Information Provided: Yes Ebola Risk: Travel/Contact With Anyone From Affected Area/s: No Has Patient Experienced Ebola Symptoms: No Meds Allergies Allergy/AdvReac Type Severity Reaction Status Date / Time codeine [CODEINE] Allergy Mild HIVES Unverified 02/14/20 14:51 diphenhydramine Allergy Mild HIES Unverified 02/14/20 14:51 [From BENADRYL] Active Medications: Current Medications Pharmacy Consult (Consult Rx Perform Med Rec) 1 each MISCELLANE ONCE PRN PRN Reason: Consult order Home Medications Medication Instructions Recorded Confirmed Last Taken Type acetaminophen 650 mg 650 mg PO Q8H PRN Migraine Headache 02/08/22 02/08/22 02/08/22 History tablet,extended release (Tylenol 8 Hour) Physical Exam Vital Signs and Narrative: Vital Signs: Last Vital Signs Temp 99.7 F 02/08/22 06:54 Pulse 70 02/08/22 11:24 Resp 16 02/08/22 11:24 BP 139/86 02/08/22 11:24 Pulse Ox 98 02/08/22 11:24 O2 Del Method 02/08/22 11:24 BMI result Body Mass Index 28.4 middle-aged male lying in ER bed in no distress regular rate and rhythm, S1-S2 heard equal breath sounds heard bilaterally, no wheezing or crackles appreciated patient is awake, alert and oriented x3, no focal motor deficits right lower extremity: erythema, warmth present over anterior tibial area no pedal edema Results Labs CBC and Chem 7: 02/08/22 07:08 02/08/22 07:08 Labs: Laboratory Results - last 24 hr 02/08/22 02/08/22 02/08/22 07:08 07:08 08:55 MCV 90.6 MCH 30.7 MCHC 33.8 RDW 12.0 Plt Count 199 MPV 9.7 Absolute Nucleated RBC 0.000 Nucleated RBC % (auto) 0.0 Anion Gap 16 Estim Creat Clear Calc 70.6 Estimated GFR 53 Random Glucose 168 H Lactic Acid 1.1 Calcium 9.6 Total Bilirubin 0.7 AST 17 ALT 18 Alkaline Phosphatase 67 Total Protein 8.0 Albumin 4.4 COVID-19 ([facility]) COVID-19 Clin Com 02/08/22 08:55 MCV MCH MCHC RDW Plt Count MPV Absolute Nucleated RBC Nucleated RBC % (auto) Anion Gap Estim Creat Clear Calc Estimated GFR Random Glucose Lactic Acid Calcium Total Bilirubin AST ALT Alkaline Phosphatase Total Protein Albumin COVID-19 ([facility]) Negative COVID-19 Clin Com See Note Imaging Radiologist's Impressions: Impressions Venous Duplex 02/08/22 09:20 IMPRESSION: No DVT demonstrated in the right lower extremity. Nonspecific right inguinal lymphadenopathy. Assessment and Plan (1) Sepsis due to cellulitis: Status: Acute (2) TRIXIE (acute kidney injury): Status: Acute Plan this is a 51-year-old male with no pertinent past medical history who is being admitted for management of sepsis due to nonpurulent cellulitis and acute kidney injury. #. Sepsis due to right lower extremity non purulent cellulitis - Patient being resuscitated with IV crystalloid as per sepsis protocol. Will initiate IV antibiotics due to extensive cellulitis : Ancef to cover Staph and strep. No concern for MRSA currently. follow cultures and clinical course #. Acute kidney injury - prerenal, nonoliguric in the setting of intravascular volume depletion. Will monitor creatinine and urine output with resuscitation Full code Regular Diet Lovenox 40mg daily Will admit as inpatient for need for IV fluids and IV antibiotics. Quality Stroke Does the patient have a stroke diagnosis?: No VTE Prior VTE?: No VTE Risk Level:: Medical - low VTE Device Contraindication: Treatment Not Indicated VTE Drug Contraindication: N/A - Med Ordered
--- NOTE | 2022-02-08 11:51 | PHA.MEDREC ---
Pharmacy Consult ? Medication Reconciliation Pharmacy has completed the medication reconciliation. Pt states that the only thing he takes at home is 650mg Tylenol for migraines and that he takes 2 to 8 tablets per day.
--- NOTE | 2022-02-08 12:02 | PC.NURSE ---
REDNESS MARKED FOR REFERENCE. NO WARMTH DETECTED. IVF COMPLETED, VSS, AFEBRILE AT THIS TIME. PT AWARE OF PLAN FOR ADMISSION.
[2022-02-08] MEDS: Enoxaparin Sodium 40 MG/0.4 ML SYRINGE SUBCUT (12:53)
[2022-02-08 13:23] LABS: Appearance Urine Clear; Color Urine Yellow; Glucose Urine UA Negative (Negative); Leukocyte Esterase Urine Negative (Negative); Nitrite Urine Negative (Negative); Specific Gravity - Urine 1.015 (1.005-1.025); Urine Blood Negative (Negative); Urine Ketones Negative (Negative); Urine Protein 30 (1+) mg/dL (Neg-Trace)
[2022-02-08 13:25] LABS: Bacteria Urine None Seen (None Seen); Hyaline Casts Urine 0-2 /LPF (0-2); RBC Urine 0-2 /HPF (0-2); Squamous Epithelial Cell Urine 0-2 /HPF (0-2); WBC Urine 0-5 /HPF (0-5)
[2022-02-08] MEDS: ceFAZolin Sodium/Dextrose,Iso 2 GM/50 ML PIGGYBACK IV ×2 (14:24→23:34)
--- NOTE | 2022-02-08 22:49 | MHC.CM.PN ---
Addendum entered by Talita Lee 02/08/22 22:52: PT evaluation: No PT. Pt is independent. Original Note: CM met with admitted patient with bed assignment pending. A&OX4. J&J and Pfizer x1. Declines HCP at this time. Employed. Lives with mother. No services or DME. D/C plan is home without services. Mother to transport home. CM to follow for d/c needs.
[2022-02-09] MEDS: 0.9 % Sodium Chloride Flush 3 ML SYRINGE IVFLUSH ×3 (01:25→15:39)
[2022-02-09] MEDS: Acetaminophen 325 MG TABLET 650 MG PO ×2 (04:21→22:21)
[2022-02-09 06:00] VITALS: BP 131/83; PULSE 69; O2SAT 97
[2022-02-09] MEDS: ceFAZolin Sodium/Dextrose,Iso 2 GM/50 ML PIGGYBACK IV ×3 (06:10→22:21)
[2022-02-09 06:23] LABS: MANUAL DIFF FLAG NO
[2022-02-09 06:32] LABS: Basophils Percent Auto 0.3 % (0-2); Eosinophils Absolute Auto 0.1 X10*3/uL (0.0-0.4); Eosinophils Percent Auto 0.6 % (0-4); Hematocrit 39.9 % (42.0-52.0); Hemoglobin 13.4 g/dl (14.0-18.0); Imm Gran Abs Auto 0.03 X10*3/uL (0.00-0.03); Imm Gran Pct Auto 0.3 % (0.0-0.4); Lymphocytes Percent Auto 10.5 % (20-40); Mean Corpuscular HGB Conc 33.6 g/dl (31.0-36.0); Mean Corpuscular Hemoglobin 30.5 pg (27.0-33.0); Mean Corpuscular Volume 90.9 fL (80.0-98.0); Mean Platelet Volume 9.8 fL (9.4-12.4); Monocytes Absolute Auto 0.9 X10*3/uL (0.1-1.2); Monocytes Percent Auto 9.6 % (2-11); Neutrophils Absolute Auto 7.7 x10*3/uL (2.0-8.3); Neutrophils Percent Auto 78.7 % (45-73); Platelet Count 171 X10*3/uL (160-400); Red Blood Count 4.39 X10*6/uL (4.60-5.80); White Blood Count 9.8 X10*3/uL (4.8-10.8)
[2022-02-09 06:49] LABS: Anion Gap 13 (12-20); Blood Urea Nitrogen 13 mg/dL (9-16); Calcium 8.8 mg/dL (8.4-10.2); Carbon Dioxide 27 mmol/L (22-29); Chloride 102 mmol/L (96-108); Estimated Glomerular Filt Rate > 60; Glucose Random 123 mg/dL (60-115); Potassium 3.9 mmol/L (3.3-5.1); Sodium 138 mmol/L (135-145)
[2022-02-09 07:03] VITALS: BP 157/103; PULSE 77; RESP 15; TEMP 37.2; O2SAT 99
[2022-02-09 08:39] VITALS: BP 137/80; PULSE 64; RESP 24; TEMP 36.7; O2SAT 98
--- NOTE | 2022-02-09 08:56 | PC.NURSE ---
Pt calm and resting this am. Reports decreased pain in right leg and headache from previous night is resolved. Pt reports he would like to go outside to smoke a cigarette. This nurse educated pt that he would not be able to leave the department to go smoke but we could talk to the doctor about getting a nicotine patch or nicotine gum. The pt refused both options stating that he does not like either of those and that they make him feel weird . Pt agreeable to not leaving the department to go smoke and will let this nurse know if he would like a nicotine patch in the future.
--- NOTE | 2022-02-09 08:57 | P.PNIM_ITS ---
Subjective Subjective Date of Service: 02/09/22 Interval History: No significant nursing events overnight. Patient lying in bed without distress. Erythema over right lower extremity improving. States he feels better since admission but not back to baseline. Patient upset as he was not able to leave the hospital to smoke cigarettes. Review of Systems All 13 ROS are reviewed and negative except as noticed in HPI Physical Exam Vital Signs: Vital Signs: Last Vital Signs Temp 98.1 F 02/09/22 08:39 Pulse 64 02/09/22 08:39 Resp 24 H 02/09/22 08:39 BP 137/80 02/09/22 08:39 Pulse Ox 98 02/09/22 08:39 O2 Del Method 02/09/22 08:39 BMI result Body Mass Index 28.4 middle-aged male lying in ER bed in no distress regular rate and rhythm, S1-S2 heard equal breath sounds heard bilaterally, no wheezing or crackles appreciated patient is awake, alert and oriented x3, no focal motor deficits right lower extremity: erythema, warmth present over anterior tibial area no pedal edema Objective Data Active Medications Acetaminophen (Acetaminophen 325 Mg Tablet) 650 mg PO Q6H PRN PRN Reason: Pain, Mild (Pain Scale 1-3) Last Admin: 02/09/22 04:21 Dose: 650 mg Documented By: AJAY Enoxaparin Sodium (Enoxaparin Sodium 40 Mg/0.4 Ml Syringe) 40 mg SUBCUT Q24H [facility] Last Admin: 02/08/22 12:53 Dose: 40 mg Documented By: NEAL Famotidine (Famotidine 20 Mg Tablet) 20 mg PO DAILY [facility] Cefazolin Sodium/Dextrose (Ancef) 2 gm in 50 mls @ 100 mls/hr IV Q8H [facility] Last Infusion: 02/09/22 07:10 Dose: 0 mls/hr Documented By: YAO Melatonin (Melatonin 3 Mg Tablet) 6 mg PO BEDTIME PRN PRN Reason: Insomnia Ondansetron HCl (Ondansetron Hcl 4 Mg/2 Ml Vial) 4 mg IVPUSH Q8H PRN PRN Reason: Nausea and Vomiting Pharmacy Consult (Consult Rx Perform Med Rec) 1 each MISCELLANE ONCE PRN PRN Reason: Consult order Senna (Sennosides 8.6 Mg Tablet) 17.2 mg PO BEDTIME PRN PRN Reason: Constipation Sodium Chloride (0.9 % Sodium Chloride Flush 3 Ml Syringe) 3 ml IVFLUSH QSHIFT MYNOR Last Admin: 02/09/22 07:09 Dose: 3 ml Documented By: YAO Labs CBC & Chem 7: 02/09/22 06:05 02/09/22 06:04 Labs: Laboratory Results - last 24 hr 02/08/22 02/08/22 02/08/22 08:55 08:55 13:13 MCV MCH MCHC RDW Plt Count MPV Immature Gran % (Auto) Neut % (Auto) Lymph % (Auto) [place] % (Auto) Eos % (Auto) Baso % (Auto) Lymph # (Auto) [place] # (Auto) Eos # (Auto) Baso # (Auto) Abs Immat Gran (auto) Absolute Neuts (auto) Absolute Nucleated RBC Nucleated RBC % (auto) Anion Gap Estim Creat Clear Calc Estimated GFR Random Glucose Lactic Acid 1.1 Calcium Urine Color Yellow Urine Appearance Clear Urine pH 6.0 Ur Specific [place] 1.015 Urine Protein 30 (1+) H Urine Glucose (UA) Negative Urine Ketones Negative Urine Blood Negative Urine Nitrite Negative Ur Leukocyte Esterase Negative Urine RBC 0-2 Urine WBC 0-5 Ur Squamous Epith Cells 0-2 Urine Bacteria None Seen Hyaline Casts 0-2 COVID-19 ([facility]) Negative COVID-19 Clin Com See Note 02/09/22 02/09/22 06:04 06:05 MCV 90.9 MCH 30.5 MCHC 33.6 RDW 12.0 Plt Count 171 MPV 9.8 Immature Gran % (Auto) 0.3 Neut % (Auto) 78.7 H Lymph % (Auto) 10.5 L [place] % (Auto) 9.6 Eos % (Auto) 0.6 Baso % (Auto) 0.3 Lymph # (Auto) 1.0 L [place] # (Auto) 0.9 Eos # (Auto) 0.1 Baso # (Auto) 0.0 Abs Immat Gran (auto) 0.03 Absolute Neuts (auto) 7.7 Absolute Nucleated RBC 0.000 Nucleated RBC % (auto) 0.0 Anion Gap 13 Estim Creat Clear Calc 106.0 Estimated GFR > 60 Random Glucose 123 H Lactic Acid Calcium 8.8 D Urine Color Urine Appearance Urine pH Ur Specific [place] Urine Protein Urine Glucose (UA) Urine Ketones Urine Blood Urine Nitrite Ur Leukocyte Esterase Urine RBC Urine WBC Ur Squamous Epith Cells Urine Bacteria Hyaline Casts COVID-19 ([facility]) COVID-19 Clin Com Assessment and Plan (1) Sepsis due to cellulitis: Status: Acute (2) TRIXIE (acute kidney injury): Status: Acute (3) Tobacco abuse: Status: Acute Plan This is a 51-year-old male with no pertinent past medical history who is being admitted for management of sepsis due to nonpurulent cellulitis and acute kidney injury. #. Sepsis due to right lower extremity non purulent cellulitis - patient resuscitated with IV crystalloids on admission. Improvement noted in leukocytosis. Erythema, warmth on right lower extremity improving. Continue Ancef. No concern for MRSA currently. Appetite improving but not back to baseline. Will continue IV antibiotics for an additional day and monitor cultures. #. Acute kidney injury-resolved - prerenal, nonoliguric in the setting of intravascular volume depletion. #. Tobacco use disorder -patient refused nicotine patch in the hospital. Full code Regular Diet Lovenox 40mg daily Will admit as inpatient for continued need of IV antibiotics. Quality Stroke Does the patient have a stroke diagnosis?: No VTE Prior VTE?: No VTE Risk Level:: Medical - low VTE Device Contraindication: Treatment Not Indicated VTE Drug Contraindication: N/A - Med Ordered
[2022-02-09] MEDS: Famotidine 20 MG TABLET PO (09:28)
[2022-02-09] MEDS: Enoxaparin Sodium 40 MG/0.4 ML SYRINGE SUBCUT (11:42)
[2022-02-09 17:55] VITALS: BP 150/88; PULSE 72; RESP 18; TEMP 36.6; O2SAT 98
--- NOTE | 2022-02-09 22:25 | PC.NURSE ---
pt resting comfortably on stretcher. tylenol given per patient request for migraine. no other complaints. call alexis within reach. will continue to monitor
[2022-02-09 23:56] VITALS: BP 143/97; PULSE 65; RESP 18; TEMP 36.4; O2SAT 97
[2022-02-10] MEDS: 0.9 % Sodium Chloride Flush 3 ML SYRINGE IVFLUSH (01:13)
[2022-02-10] MEDS: ceFAZolin Sodium/Dextrose,Iso 2 GM/50 ML PIGGYBACK IV (06:24)
[2022-02-10 07:33] VITALS: BP 156/92; PULSE 67; RESP 12; TEMP 36.1; O2SAT 98
--- NOTE | 2022-02-10 08:52 | PC.NURSE ---
pt to be dc this am
--- NOTE | 2022-02-10 09:20 | PM.DS ---
DS: Providers Provider Date of Service: 02/10/22 Date of admission: 02/08/22 11:34 Primary care physician: Noe Burgos MD DS: Diagnosis Discharge Diagnosis (1) Sepsis due to cellulitis: Status: Acute (2) TRIXIE (acute kidney injury): Status: Acute (3) Tobacco abuse: Status: Acute DS: Summary Hospital Course Hospital Course: This is a 51-year-old male with no pertinent past medical history who is being admitted for management of sepsis due to nonpurulent cellulitis and acute kidney injury. #. Sepsis due to right lower extremity non purulent cellulitis -? patient resuscitated with IV crystalloids on admission.? Improvement noted in leukocytosis.? Erythema, warmth on right lower extremity improved with IV antibiotics. No concern for MRSA currently.? Patient's symptoms improved and appetite and return to baseline. Patient stable to be discharged with a prescription of Keflex to complete a 7 day course #. Acute? kidney injury-resolved prior to discharge - prerenal, nonoliguric in the setting of intravascular volume depletion. #. Tobacco use disorder -patient refused nicotine patch in the hospital. #. Elevated blood pressure -patient's blood pressure was elevated throughout hospital course. States he was previously on antihypertensives but discontinued due to nausea. Recommend close follow-up with PCP and optimization of blood pressure with antihypertensive regimen. Patient reluctant to start antihypertensives prior to discharge. Time spent discussing smoking cessation with patient: 3 to 10 minutes Status at Discharge Functional status at discharge: independent ambulation Overall status at discharge: patient is progressing back to baseline Time Spent with Patient Time attestation: Total time spent providing and/or coordinating discharge services: Discharge coordination time: Less than 30 minutes Quality: Safe Use of Opioids Does Pt have an Active Cancer Diagnosis on the Problem List?: No Quality: Stroke Does the patient have a stroke diagnosis?: No Physical Exam Vital Signs: Vital Signs: Last Vital Signs Temp 97.0 F 02/10/22 07:33 Pulse 67 02/10/22 07:33 Resp 12 02/10/22 07:33 BP 156/92 H 02/10/22 07:33 Pulse Ox 98 02/10/22 07:33 O2 Del Method 02/10/22 07:33 BMI result Body Mass Index 28.4 middle-aged male lying in ER bed in no distress regular rate and rhythm, S1-S2 heard equal breath sounds heard bilaterally, no wheezing or crackles appreciated patient is awake, alert and oriented x3, no focal motor deficits right lower extremity: erythema, warmth present over anterior tibial area no pedal edema DS: Data Data Completed and Pending Labs on day of discharge: Preliminary micro results at discharge 02/08/22 09:11 Blood Culture - Preliminary Blood - Venous No growth after 24 hours. 02/08/22 08:55 Blood Culture - Preliminary Blood - Venous No growth after 24 hours. Imaging Chest x-ray: Radiologist's impression: ITS Impressions Venous Duplex 02/08/22 09:20 IMPRESSION: No DVT demonstrated in the right lower extremity. Nonspecific right inguinal lymphadenopathy. Discharge Plan Discharge Patient Disposition: Home, Self-Care Discharge Diagnosis: Non purulent cellulitis Referrals: Noe Burgos MD [Primary Care Provider] - 1 Week Discharge Medications: New cephalexin 500 mg tablet 500 mg PO QID Qty: 5 0RF Discontinued acetaminophen [Tylenol 8 Hour] 650 mg Tablet Extended Release 650 mg PO Q8H PRN (Reason: Migraine Headache) Discharge Orders: Discharge Order (Routine); Ordered 02/10/22 Ordered By: Miguel Mcmanus Diet: Regular diet Activity on Discharge: As tolerated Stand Alone Forms: Patient Portal Discharge page Care Plan Goals: Cephalexin p.o. 500 mg 4 times daily x5 days Health Concerns: Tobacco use disorder Essential hypertension Plan of Treatment: Close follow-up with PCP within 1 week and monitoring of blood pressure Assessment: As per summary.
--- NOTE | 2022-02-10 09:41 | MHC.CM.PN ---
PT TO DC HOME TODAY WITH NO SERVICES PT TO ARRANGE TRANSPORT
== END 2022-02-10 09:43 | disposition home or self-care (01) | DRG 720 ==
LOC: HO.ED 08:35 → HO.EDOVER 12:09
PROVIDERS: Physician Assistant Medical; Admitting Provider Student in an Organized Health Care Education/Training Program; Emergency Provider Emergency Medicine; PCP Internal Medicine; Visit Provider Student in an Organized Health Care Education/Training Program
DX: A41.9 Sepsis, unspecified organism (principal); N17.9 Acute kidney failure, unspecified; L03.115 Cellulitis of right lower limb; F17.210 Nicotine dependence, cigarettes, uncomplicated; Z71.6 Tobacco abuse counseling; Z20.822 Contact with and (suspected) exposure to COVID-19; Z88.5 Allergy status to narcotic agent; Z88.6 Allergy status to analgesic agent
CPT/HCPCS: 36415; 80048; 80053; 81001; 83605; 85025; 85027; 87040; 87635; 93971; 97161; 99218; 99285; J0690; J0696; J1650; J2405